=== PATIENT | female | born 1995 | race Caucasian/White ===

== ENCOUNTER 2019-04-20 14:37 | Emergency (ER) | payer OTHER ==
[~2019-04-20] VITALS: Ht 165.1 cm; Wt 68.5 kg
[2019-04-20 14:57] VITALS: Ht 165.1 cm; Wt 68.5 kg
[2019-04-20 18:46] VITALS: BP 120/59
== END 2019-04-20 18:47 | disposition home or self-care (01) ==
LOC: ED 14:37
DX: H10.211 Acute toxic conjunctivitis, right eye (principal)